=== PATIENT | male | born 1940 | race Caucasian/White ===

== ENCOUNTER → 2019-11-19 09:57 | Outpatient (BNVA) | payer MEDICARE, OTHER, SELFPAY | PROVIDERS: Family Provider Family Medicine; PCP Family Medicine; Visit Provider Nurse Practitioner Family | DX: N40.1 Benign prostatic hyperplasia with lower urinary tract symptoms (principal); R33.9 Retention of urine, unspecified | CPT/HCPCS: 81001 ==

== ENCOUNTER → 2020-11-18 09:48 | Outpatient (BNVA) | payer MEDICARE, OTHER, SELFPAY | PROVIDERS: Family Provider Family Medicine; PCP Family Medicine; Visit Provider Urology | DX: N40.1 Benign prostatic hyperplasia with lower urinary tract symptoms (principal); N13.8 Other obstructive and reflux uropathy; Z87.448 Personal history of other diseases of urinary system | CPT/HCPCS: 81003 ==

== ENCOUNTER → 2021-09-24 14:02 | Outpatient (BNVA) | payer MEDICARE, OTHER, SELFPAY | PROVIDERS: Family Provider Family Medicine; PCP Family Medicine; Visit Provider Internal Medicine Cardiovascular Disease | DX: I25.10 Atherosclerotic heart disease of native coronary artery without angina pectoris (principal); I10 Essential (primary) hypertension; E78.5 Hyperlipidemia, unspecified; Z87.891 Personal history of nicotine dependence | CPT/HCPCS: 99213; 99214 ==

== ENCOUNTER → 2021-11-19 10:41 | Outpatient (BNVA) | payer MEDICARE, OTHER, SELFPAY | PROVIDERS: Family Provider Family Medicine; PCP Family Medicine; Visit Provider Urology | DX: N40.1 Benign prostatic hyperplasia with lower urinary tract symptoms (principal); N13.8 Other obstructive and reflux uropathy; Z87.448 Personal history of other diseases of urinary system; N50.819 Testicular pain, unspecified | CPT/HCPCS: 51798; 81003; 99213 ==

== ENCOUNTER → 2021-12-10 12:52 | Outpatient (BNVA) | payer MEDICARE, OTHER, SELFPAY | PROVIDERS: Family Provider Family Medicine; PCP Family Medicine; Visit Provider Urology | DX: N40.1 Benign prostatic hyperplasia with lower urinary tract symptoms (principal); N45.1 Epididymitis; N13.8 Other obstructive and reflux uropathy | CPT/HCPCS: 81003; 87086; 99213 ==

== ENCOUNTER → 2022-01-01 09:23 | Outpatient (BNVA) | payer MEDICARE, OTHER, SELFPAY | PROVIDERS: Family Provider Family Medicine; PCP Family Medicine; Visit Provider Urology | DX: N40.1 Benign prostatic hyperplasia with lower urinary tract symptoms (principal); N13.8 Other obstructive and reflux uropathy; N45.1 Epididymitis | CPT/HCPCS: 81003; 99213 ==

== ENCOUNTER → 2022-01-11 12:34 | Outpatient (BNVA) | payer MEDICARE, OTHER, SELFPAY | PROVIDERS: Family Provider Family Medicine; PCP Family Medicine; Visit Provider Urology | DX: N40.1 Benign prostatic hyperplasia with lower urinary tract symptoms (principal); N13.8 Other obstructive and reflux uropathy; N45.1 Epididymitis | CPT/HCPCS: 81003; 99213 ==

== ENCOUNTER → 2022-02-18 08:23 | Outpatient (BNVA) | payer MEDICARE, OTHER, SELFPAY | PROVIDERS: Family Provider Family Medicine; PCP Family Medicine; Visit Provider Family Medicine | DX: I10 Essential (primary) hypertension (principal); E78.5 Hyperlipidemia, unspecified; Z79.899 Other long term (current) drug therapy | CPT/HCPCS: 80053; 80061; 83036; 85025 ==

== ENCOUNTER 2022-03-11 08:52 | Emergency (ER) | payer MEDICARE, OTHER, SELFPAY ==
[2022-03-11 09:10] VITALS: BP 174/83; PULSE 69; RESP 28; TEMP 36.2; O2SAT 100
--- NOTE | 2022-03-11 09:16 | XRR_ITS ---
PROCEDURE INFORMATION: Exam: XR Chest Exam date and time: 03/11/2022 9:20 AM Age: 81 years old Clinical indication: Cough, dyspnea and shortness of breath. Feels as if his heart is racing. Patient states that he does not feel right. Face is really red. of the patient states that he has never had an episode like this before. Dyspnea/cough TECHNIQUE: Imaging protocol: Radiologic exam of the chest. Views: 1 view. COMPARISON: CT chest w con* [id number] 05/08/2019 1:57 PM FINDINGS: Lungs: No pulmonary consolidation. Pleural spaces: No pleural effusion. No pneumothorax. Heart/Mediastinum: The cardiac silhouette is unchanged. No gross evidence of pneumomediastinum. Diaphragm: Persistent elevation of the right hemidiaphragm. Bones/joints: Severe degenerative changes at the right glenohumeral joint. Moderate to severe degenerative changes at the left glenohumeral joint. No gross fracture. XR/XR chest 1V portable [id number] IMPRESSION: 1. No acute cardiopulmonary abnormality identified. 2. Persistent elevation of the right hemidiaphragm. 3. Severe degenerative changes at the right glenohumeral joint. Moderate to severe degenerative changes at the left glenohumeral joint.
--- NOTE | 2022-03-11 09:16 | ECG_ITS ---
[facility] Test Date: 2022-03-11 Pat Name: Jesus Overton Department: Room: Gender: Male Sub Prior: : 1940 Requested By: Trent Monet Order Number: [id number] Gregg MD: Robe Addison M.D. Measurements Intervals [place] Rate: 68 P: 64 TN: 158 QRS: 41 QRSD: 101 T: -22 QT: 409 QTc: 438 Interpretive Statements SINUS RHYTHM WITH SINUS ARRHYTHMIA POSSIBLE RIGHT VENTRICULAR CONDUCTION DELAY [RSR (QR) IN V1/V2] NONSPECIFIC ST & T-WAVE ABNORMALITY Compared to ECG 06/23/2016 23:04:33 T-wave abnormality now present Sinus bradycardia no longer present Myocardial infarct finding no longer present Electronically Signed On 03-11-2022 11:06:59 CDT by Robe Addison M.D. [email or web address]/store/Ov/[id number]/[id number]
--- NOTE | 2022-03-11 09:29 | PC.NURSE ---
PT PLACED ON CONTINUOUS NIBP, SPO2, AND CM
--- NOTE | 2022-03-11 09:36 | ED_ITS ---
HPI - SOB/Dyspnea General: Chief Complaint: Shortness of Breath/Dyspnea Stated Complaint: SOB Time Seen by Provider: 03/11/22 08:57 Source: patient Mode of arrival: ambulatory History of Present Illness: HPI Narrative: 81-year-old male presents emergency room complaining of shortness of breath. He is not really having any chest pain or discomfort that he tells the nurse about. when I seen the patient though his states that he has been complaining of left chest pain he has no radiation of any discomfort into his neck or arms. In 2016 patient had a coronary artery stent placed by Dr. Beltran at this facility has been taking Plavix since then. On arrival he appears to be hyperventilating with respiratory rate initially in the upper 20s and 30s when I came in and seen the patient he was actually approaching 50 breaths/min and was obviously hyperventilating. No recent fever sweats chills or productive cough. MD elicited complaint: shortness of breath Onset (ago): hour(s) Timing: constant Severity: moderate Exacerbating factors: nothing Relieving factors: nothing Associated symptoms: Reports chest pain and sense of impending doom; Deny abdominal pain, chest congestion, cough, diaphoresis, dizziness, extremity pain, fever(s), hemoptysis, lightheadedness, myalgias, nausea, orthopnea, palpitations, paresthesias, polydipsia, polyuria, rash, syncope or vomiting Treatment prior to arrival: none Review of Systems Const: Denies: fever(s), chills, fatigue, malaise or diaphoresis ENMT: Denies: throat pain, ear or mastoid pain, nasal discharge or nasal conge stion Card: Reports: chest pain; Denies: palpitations, irregular heart rhythm, edema, lightheadedness, syncope or orthopnea Resp: Reports: dyspnea; Denies: productive cough, non-productive cough, hemoptysis or chest congestion GI: Denies: abdominal pain, nausea or vomiting : Denies: flank pain, dysuria, urinary frequency or urinary urgency Musc: Denies: neck pain, back pain or extremity pain Skin/Breast: Denies: rash or pruritus Neuro: Denies: dizziness Endo: Denies: polyuria or polydipsia PFS ED PFSH: Medical History 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 Dyslipidemia (high LDL; low HDL) Elevated PSA Hypertension Surgical History H/O heart artery stent H/O neck surgery Status post transurethral resection of prostate Family History Father , at 96 Heart disease Bleeding disorder Hypertension Mother , at age 94 Stroke Social History Smoking and tobacco status: former smoker Alcohol intake: never Marital status: Current occupational status: retired History of recent travel: No Physical Exam Const: COMMON NORMALS: no acute distress GENERAL APPEARANCE: cooperative and comfortable ORIENTATION/CONSCIOUSNESS: Yes awake, Yes oriented to person, Yes oriented to place and Yes oriented to time HENMT: COMMON NORMALS: normocephalic, atraumatic, hearing grossly normal bilaterally, external ears normal, EAC's normal, TM's normal bilaterally, Normal nasal mucous membranes and turbinates present, moist oral mucous membranes and oropharynx normal HEAD & SCALP: normocephalic and atraumatic NOSE: Normal nasal mucous membranes and turbinates present EXTERNAL EAR: Yes external ears normal EXTERNAL AUDITORY CANAL: EAC's normal TYMPANIC MEMBRANE: TM's normal bilaterally Eye: COMMON NORMALS: Equal, round and reactive pupils present, EOMs intact bilaterally, conjunctivae normal and no scleral icterus CONJUNCTIVA: Yes conjunctivae normal PUPIL: Yes Equal, round and reactive pupils present Neck/C-Spine: COMMON NORMALS: full ROM, no lymphadenopathy, supple and no JVD Lymph: LYMPHATIC: no lymphadenopathy noted and no lymphedema noted Resp: COMMON NORMALS: No retractions, No use of accessory muscles and clear to auscultation bilaterally EFFORT & INSPECTION: Yes tachypneic AUSCULTATION: clear to auscultation bilaterally Cardio: COMMON NORMALS: no JVD, regular rate, regular rhythm and No murmurs present (Cardio) RATE: regular rate RHYTHM: regular rhythm GI: COMMON NORMALS: Soft to palpation and No hepatosplenomegaly present AUSCULTATION: Yes normoactive bowel sounds PALPATION: Yes Soft to palpation, No Tenderness to palpation present (GI), No Guarding due to palpation present (GI) and Yes No hepatosplenomegaly present Extremity: COMMON NORMALS: normal to inspection, capillary refill normal, no clubbing, cyanosis or edema, no calf tenderness and no pedal edema Neuro: SENSORIUM/ORIENTATION: Yes oriented to person, Yes oriented to place and Yes oriented to time Skin: COMMON NORMALS: no rashes or lesions noted GENERAL SKIN EXAM: no rashes or lesions noted Course Vital Signs: Vital signs: Vital Signs Temperature 97.2 F L 03/11/22 09:10 Pulse Rate 83 03/11/22 11:40 Respiratory Rate 20 H 03/11/22 10:40 Blood Pressure 162/78 03/11/22 11:40 Pulse Oximetry 96 03/11/22 11:40 Oxygen Delivery Me thod 03/11/22 10:40 Oxygen Flow Rate 2 03/11/22 10:40 MDM - SOB/Dyspnea Medical Decision Making Patient having significant anxiety attack with blood gases verified hyperventilation. Eventually were able to get him to slow down with use of benzodiazepines. He became quite sedate and actually for a brief time because of sleep apnea required some oxygen support. That improved and he is able to ambulate his hyperventilation is ceased we will discharge patient home have him follow-up with his primary care and/or cardiology. states he has an appointment to establish with cardiology this week. Medical Records I reviewed the patient's medical records. Lab Data I reviewed the patient's lab results. : 03/11/22 09:10 03/11/22 09:10 Labs/Radiology: Radiology Impressions Chest X-Ray 03/11/22 09:16 IMPRESSION: 1. No acute cardiopulmonary abnormality identified. 2. Persistent elevation of the right hemidiaphragm. 3. Severe degenerative changes at the right glenohumeral joint. Moderate to severe degenerative changes at the left glenohumeral joint. Laboratory Results WBC 13.2 10^3/uL (4.0-10.0) H 03/11/22 09:10 RBC 5.44 10^6/uL (4.1-5.3) H 03/11/22 09:10 Hgb 16.5 g/dL (11.7-16.6) 03/11/22 09:10 Hct 47.9 % (42.0-52.0) 03/11/22 09:10 MCV 88.1 fl (80-94) 03/11/22 09:10 MCH 30.3 pg (28.0-34.0) 03/11/22 09:10 MCHC 34.4 g/dL (30.0-36.0) 03/11/22 09:10 RDW 13.2 % (12.1-15.1) 03/11/22 09:10 Plt Count 366 10^3/cmm (130-400) 03/11/22 09:10 MPV 9.4 fL (7.4-10.4) 03/11/22 09:10 Neut % (Auto) 55.1 % 03/11/22 09:10 Lymph % (Auto) 30.9 % 03/11/22 09:10 Rains % (Auto) 10.4 % 03/11/22 09:10 Eos % (Auto) 1.7 % 03/11/22 09:10 Baso % (Auto) 0.8 % 03/11/22 09:10 Neut # (Auto) 7.26 10^3/uL (1.8-7.7) 03/11/22 09:10 Lymph # (Auto) 4.1 10^3/uL (0.8-4.8) 03/11/22 09:10 Rains # (Auto) 1.4 10^3/uL (0.2-0.9) H 03/11/22 09:10 Eos # (Auto) 0.2 10^3/uL (0.0-0.8) 03/11/22 09:10 Baso # (Auto) 0.1 10^3/uL (0.0-0.1) 03/11/22 09:10 Nucleated RBC % (auto) 0 % 03/11/22 09:10 Nucleated RBCs # 0.0 /100WBC 03/11/22 09:10 Specimen Type Arterial 03/11/22 09:27 Sample Site Radial, left 03/11/22 09:27 ABG pH 7.70 (7.35-7.45) H* 03/11/22 09:27 ABG pCO2 13.2 mmHg (35-45) L* 03/11/22 09:27 ABG pO2 129.0 mmHg (80.0-100.0) H 03/11/22 09:27 ABG HCO3 16.2 mmol/L (22-26) L 03/11/22 09:27 ABG O2 Saturation 98.5 03/11/22 09:27 ABG Base Excess 0.8 mmol/L (-2.0-2.0) 03/11/22 09:27 Irineo Test Pos 03/11/22 09:27 A-a O2 Gradient 0.1 mmHg (5-10) L 03/11/22 09:27 Hematocrit 53.7 % (42-52) H 03/11/22 09:27 Hgb O2 Saturation 97.9 % (95-100) 03/11/22 09:27 Carboxyhemoglobin 0.4 %THgb (0.4-20.1) 03/11/22 09:27 Methemoglobin 0.3 % (0.4-1.5) L 03/11/22 09:27 Total Hemoglobin 17.5 g/dL (14-18) 03/11/22 09:27 Sodium 142.0 mmol/L (131-143) 03/11/22 09:27 Potassium 3.4 mmol/L (3.5-5.0) L 03/11/22 09:27 Glucose 103.0 mg/dL (70-115) 03/11/22 09:27 Ionized Calcium 1.1 mmol/L (1.1-1.4) 03/11/22 09:27 O2 Delivery Device Room air 03/11/22 09:27 Sampler Pickup ID Cak 03/11/22 09:27 Sodium 140 mmol/L (136-145) 03/11/22 09:10 Potassium 3.3 mmol/L (3.5-5.1) L 03/11/22 09:10 Chloride 103 mmol/L (98-107) 03/11/22 09:10 Carbon Dioxide 21 mmol/L (22-29) L 03/11/22 09:10 Anion Gap 19.3 (5-19) H 03/11/22 09:10 BUN 21 mg/dL (8-23) 03/11/22 09:10 Creatinine 1.1 mg/dL (0.7-1.2) 03/11/22 09:10 GFR Calculation Not Reportable 03/11/22 09:10 Glucose 89 mg/dL (65-115) 03/11/22 09:10 Calculated Osmolality 292 mOsm/kg (285-295) 03/11/22 09:10 Calcium 9.3 mg/dL (8.5-10.5) 03/11/22 09:10 Total Bilirubin 0.9 mg/dL (0.15-1.2) 03/11/22 09:10 AST 16 U/L (0-40) 03/11/22 09:10 ALT 23 U/L (0-41) 03/11/22 09:10 Alkaline Phosphatase 115 U/L (40-130) 03/11/22 09:10 Troponin T Baseline 10 ng/L (0-15) 03/11/22 09:10 Troponin T 120 Minute 10.85 ng/L (0-15) 03/11/22 10:41 Delta Troponin T 0.85 ABS# (0-10) 03/11/22 10:41 Total Protein 7.3 g/dL (6.6-8.7) 03/11/22 09:10 Albumin 4.1 g/dL (3.5-5.2) 03/11/22 09:10 Globulin 3.2 g/dL (1.3-4.6) 03/11/22 09:10 Discharge Plan Discharge Patient Disposition: Home Clinical Impression: Acute hyperventilation syndrome Condition: Stable Prescriptions: New Ativan 2 mg tablet 2 mg PO Q8H PRN (Reason: anxiety) Qty: 10 0RF No Action simvastatin 40 mg tablet 40 mg PO DAILY pantoprazole 40 mg tablet,delayed release (DR/EC) 40 mg PO DAILY clopidogrel 75 mg tablet 75 mg PO DAILY Qty: 90 2RF lisinopril 40 mg tablet 40 mg PO DAILY 30 Days Qty: 30 11RF finasteride 5 mg tablet 5 mg PO DAILY Discharge Orders: Discharge ED (Routine); Ordered 03/11/22 Ordered By: Trent Granados Referrals: Gadiel Chávez, [Primary Care Provider] - Discharge Diet: Usual diet Discharge Activity: Increase activity as tolerated Patient Instructions: Opioid Safety, Pain Management Activity Restrictions/Additional Instructions: Follow-up with your primary care doctor as needed. Coding Level of Care Code ED Vehicle Care Specialist for Chg Fwd Exam Comprehensive
[2022-03-11 09:38] LABS: Alveolar-Arterial Oxygen Gradi 0.1 mmHg (5-10); Arterial Blood Gas Hematocrit 53.7 % (42-52); Base Excess ABG 0.8 mmol/L (-2.0-2.0); Blood Gas Allen Test Pos; Blood Gas Operator Identificat CAK; Blood Gas Sample Site Radial, left; Blood Gas Sample Type Arterial; Carboxyhemoglobin 0.4 %THgb (0.4-20.1); HCO3 ABG 16.2 mmol/L (22-26); HGB O2 Sat 97.9 % (95-100); Ionized Calcium Level - ABG 1.1 mmol/L (1.1-1.4); Methemoglobin 0.3 % (0.4-1.5); Oxygen Device ROOM AIR; Oxygen Saturation ABG 98.5; Potassium Level - ABG 3.4 mmol/L (3.5-5.0); Total Hemoglobin 17.5 g/dL (14-18)
[2022-03-11 09:39] LABS: ABG PCO2 13.2 mmHg (35-45)
[2022-03-11 09:40] VITALS: BP 175/91; PULSE 84; RESP 30; O2SAT 98
[2022-03-11 09:41] LABS: Basophils # 0.1 10^3/uL (0.0-0.1); Basophils % 0.8 %; Eosinophils # 0.2 10^3/uL (0.0-0.8); Eosinophils % 1.7 %; Hematocrit 47.9 % (42.0-52.0); Hemoglobin 16.5 g/dL (11.7-16.6); Lymphocytes # 4.1 10^3/uL (0.8-4.8); Lymphocytes % 30.9 %; Mean Corpuscular HGB Conc 34.4 g/dL (30.0-36.0); Mean Corpuscular Hemoglobin 30.3 pg (28.0-34.0); Mean Corpuscular Volume 88.1 fl (80-94); Mean Platelet Volume 9.4 fL (7.4-10.4); Monocytes # 1.4 10^3/uL (0.2-0.9); Monocytes % 10.4 %; Neutrophils # 7.26 10^3/uL (1.8-7.7); Neutrophils % 55.1 %; Nucleated Red Blood Cells % 0 %; Platelet Count 366 10^3/cmm (130-400); Red Blood Count 5.44 10^6/uL (4.1-5.3); Red Cell Distribution Width 13.2 % (12.1-15.1); White Blood Count 13.2 10^3/uL (4.0-10.0)
[2022-03-11] MEDS: LORazepam 2 mg Tablet PO (09:51)
[2022-03-11 10:04] LABS: Alanine Aminotransferase 23 U/L (0-41); Albumin Level 4.1 g/dL (3.5-5.2); Alkaline Phosphatase 115 U/L (40-130); Anion Gap 19.3 (5-19); Aspartate Amino Transferase 16 U/L (0-40); Blood Urea Nitrogen 21 mg/dL (8-23); Calcium 9.3 mg/dL (8.5-10.5); Carbon Dioxide 21 mmol/L (22-29); Chloride 103 mmol/L (98-107); Globulin 3.2 g/dL (1.3-4.6); Glucose 89 mg/dL (65-115); Osmolality Calculated 292 mOsm/kg (285-295); Potassium 3.3 mmol/L (3.5-5.1); Sodium 140 mmol/L (136-145); Total Bilirubin 0.9 mg/dL (0.15-1.2); Total Protein 7.3 g/dL (6.6-8.7)
[2022-03-11 10:05] LABS: Troponin(5th) Baseline 10 ng/L (0-15)
[2022-03-11] MEDS: midazolam 1 mg/mL INJ 2 mL IVP (10:33)
[2022-03-11 10:40] VITALS: BP 171/82; PULSE 63; RESP 20; O2SAT 97
[2022-03-11 11:12] LABS: Troponin 5 2HR 10.85 ng/L (0-15)
[2022-03-11 11:39] LABS: Troponin 5 2HR Delta 0.85 ABS# (0-10)
[2022-03-11 11:40] VITALS: BP 162/78; PULSE 83; O2SAT 96
== END 2022-03-11 11:42 | disposition home or self-care (01) ==
PROVIDERS: Emergency Provider Family Medicine; PCP Family Medicine
DX: F45.8 Other somatoform disorders (principal); Z79.02 Long term (current) use of antithrombotics/antiplatelets; I25.10 Atherosclerotic heart disease of native coronary artery without angina pectoris; I10 Essential (primary) hypertension; E78.5 Hyperlipidemia, unspecified; Z87.891 Personal history of nicotine dependence
CPT/HCPCS: 36415; 36600; 71045; 80051; 80053; 82330; 82805; 84484; 85025; 93005; 96374; 99285; J2250

== ENCOUNTER → 2022-03-12 10:44 | Outpatient (BNVA) | payer MEDICARE, OTHER, SELFPAY | PROVIDERS: PCP Family Medicine; Visit Provider Internal Medicine Cardiovascular Disease | DX: I10 Essential (primary) hypertension (principal); Z87.891 Personal history of nicotine dependence | CPT/HCPCS: 99213; 99214 ==

== ENCOUNTER → 2022-03-16 07:36 | Outpatient (BNVA) | payer MEDICARE, OTHER, SELFPAY | PROVIDERS: PCP Family Medicine; Visit Provider Urology | DX: N40.1 Benign prostatic hyperplasia with lower urinary tract symptoms (principal); N13.8 Other obstructive and reflux uropathy; N45.1 Epididymitis | CPT/HCPCS: 99213 ==

== ENCOUNTER → 2022-06-28 14:33 | Outpatient (BNVA) | payer MEDICARE, SELFPAY | PROVIDERS: PCP Family Medicine; Visit Provider Urology | DX: N40.1 Benign prostatic hyperplasia with lower urinary tract symptoms (principal); Z87.448 Personal history of other diseases of urinary system; N13.8 Other obstructive and reflux uropathy; N50.812 Left testicular pain | CPT/HCPCS: 81003; 99214 ==

== ENCOUNTER 2022-07-05 05:49 | Day surgery (SDC) | payer MEDICARE, SELFPAY ==
--- NOTE | 2022-06-30 11:10 | ECG_ITS ---
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 Measurements Intervals [place] Rate: 65 P: 62 TN: 165 QRS: 50 QRSD: 102 T: 37 QT: 399 QTc: 416 Interpretive Statements SINUS RHYTHM INCOMPLETE RIGHT BUNDLE BRANCH BLOCK [90+ ms QRS DURATION, TERMINAL R IN V1/V2, 40+ ms S IN I/aVL/V4/V5/V6] INTERPRETATION BASED ON A DEFAULT AGE OF 40 YEARS Compared to ECG 03/11/2022 09:04:29 Incomplete right bundle-branch block now present Sinus arrhythmia no longer present T-wave abnormality no longer present Electronically Signed On 07-01-2022 0:16:05 MINING HELPER by Scout Potts M.D. [email or web address]/store/[id number] f
--- NOTE | 2022-06-30 11:58 | ANES.PREANE2 ---
Pre-Anesthetic Assessment Height/Weight: Height 1.73 m Weight 86.636 kg Operation Date: 07/05/22 07:20 Proposed Procedures p LEFT ORCHIECTOMY 82520,N50.819(Left) - Drew Kurtz MD Was Beta Santiago taken within 24 hours: N/A Was Clonidine taken within 24 hours: N/A Social No alcohol and No tobacco Exam alert, oriented x 3, clear to auscultation bilaterally and regular rate & rhythm Airway Submandibular: within normal limits Cervical ROM: within normal limits Mallampati: Class II Dentition: false Comments: Comments: Full upper plate lower pertial History/ROS No significant history except as noted and No significant complaints Pulmonary None reported CV/HEM Coronary Artery Disease and Hypertension Stents x2 2016 None reported Hepatic None reported GI None reported Metabolic None reported Musc/skel None reported Neuropsych None reported Anesthetic Plan ASA status: 2 Anesthesia: Anesthesia Evaluation and General Risk of > 500 ml blood loss (7ml/kg in children): No Medications/Allergies Home Medications Medication Instructions Recorded Confirmed Last Taken Type pantoprazole 40 mg tablet,delayed 40 mg PO DAILY 11/19/19 06/30/22 06/30/22 History release clopidogrel 75 mg tablet 75 mg PO DAILY #90 tabs 12/25/21 06/30/22 06/28/22 Rx lisinopril 40 mg tablet 40 mg PO DAILY 30 days #30 tabs 01/15/22 06/30/22 06/30/22 Rx finasteride 5 mg tablet 5 mg PO DAILY 03/11/22 06/30/22 06/30/22 History simvastatin 40 mg tablet 40 mg PO DAILY for cholesterol #90 06/17/22 06/30/22 06/30/22 Rx tabs Allergies Allergy/AdvReac Type Severity Reaction Status Date / Time Sulfa (Sulfonamide Allergy Intermediate headache Verified 06/30/22 10:53 Antibiotics) metoprolol Allergy Intermediate weak and Uncoded 06/28/22 14:41 sluggish [facility] Anesthesia Medical History Atherosclerotic heart disease of [place] coronary artery without angina pectoris Benign essential HTN BPH w urinary obs/LUTS Dyslipidemia (high LDL; low HDL) Elevated PSA Hypertension Surgical History H/O heart artery stent H/O neck surgery Status post transurethral resection of prostate Family History Father , at 96 Heart disease Bleeding disorder Hypertension Mother , at age 94 Stroke Social History Smoking and tobacco status: former smoker Alcohol intake: never Marital status: Current occupational status: retired History of recent travel: No Data Anesthesia Cardiac Studies: No Data to Display
--- NOTE | 2022-07-05 05:58 | ECG_ITS ---
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 Measurements Intervals [place] Rate: 57 P: 37 NC: 177 QRS: 38 QRSD: 106 T: 32 QT: 386 QTc: 378 Interpretive Statements SINUS BRADYCARDIA INCOMPLETE RIGHT BUNDLE BRANCH BLOCK [90+ ms QRS DURATION, TERMINAL R IN V1/V2, 40+ ms S IN I/aVL/V4/V5/V6] NONSPECIFIC T-WAVE ABNORMALITY Compared to ECG 06/30/2022 11:10:34 T-wave abnormality now present Sinus rhythm no longer present Electronically Signed On 07-05-2022 11:20:51 HEADLIGHT ASSEMBLER by Robe Addison M.D. [id number]
[2022-07-05 06:03] VITALS: BP 141/76; PULSE 55; RESP 18; TEMP 36.8; O2SAT 97
[2022-07-05] MEDS: sodium chloride 0.9% 1,000 ML 30 ML IV (06:17)
[2022-07-05 06:19] LABS: Basophils # 0.1 10^3/uL (0.0-0.1); Basophils % 1.3 %; Eosinophils # 0.3 10^3/uL (0.0-0.8); Eosinophils % 3.2 %; Hematocrit 48.4 % (42.0-52.0); Hemoglobin 16.1 g/dL (11.7-16.6); Lymphocytes # 3.4 10^3/uL (0.8-4.8); Mean Corpuscular HGB Conc 33.3 g/dL (30.0-36.0); Mean Corpuscular Hemoglobin 29.6 pg (28.0-34.0); Mean Platelet Volume 9.3 fL (7.4-10.4); Monocytes # 0.8 10^3/uL (0.2-0.9); Neutrophils # 4.45 10^3/uL (1.8-7.7); Neutrophils % 49.1 %; Nucleated Red Blood Cells % 0 %; Platelet Count 286 10^3/cmm (130-400); Red Blood Count 5.44 10^6/uL (4.1-5.3); Red Cell Distribution Width 12.7 % (12.1-15.1); White Blood Count 9.1 10^3/uL (4.0-10.0)
[2022-07-05 06:40] LABS: Blood Urea Nitrogen 15 mg/dL (8-23); Carbon Dioxide 22 mmol/L (22-29); Chloride 105 mmol/L (98-107); Glucose 81 mg/dL (65-115); Osmolality Calculated 288 mOsm/kg (285-295); Sodium 139 mmol/L (136-145)
--- NOTE | 2022-07-05 06:46 | ANES.PREANE2 ---
Pre-Anesthetic Assessment Height/Weight: Height 1.73 m Weight 86.636 kg Temp Pulse Resp BP Pulse Ox O2 Del Method 98.2 F 55 L 18 141/76 97 07/05/22 06:03 07/05/22 06:03 07/05/22 06:03 07/05/22 06:03 07/05/22 06:03 07/05/22 06:03 Preop Diagnosis: Left testalgia, chronic Operation Date: 07/05/22 07:00 Proposed Procedures p LEFT ORCHIECTOMY 78093,N50.819(Left) - Drew Kurtz MD Familial anesthetic complications: no issues Last intake: Intake Last Liquid Date 07/04/22 Last Liquid Time 17:30 Last Solid Date 07/04/22 Last Solid Time 17:30 Social No alcohol and No tobacco Airway Submandibular: within normal limits Cervical ROM: within normal limits Mallampati: Class III Dentition: false Pulmonary None reported CV/HEM Hypertension 2017 heart stents None reported Hepatic None reported GI Gastroesophageal Reflux Disease (no symptoms today) and Hiatal Hernia Metabolic Hyperlipidemia [facility] None reported Neuropsych None reported Anesthetic Plan ASA status: 3 Anesthesia: General Medications/Allergies Home Medications Medication Instructions Recorded Confirmed Last Taken Type pantoprazole 40 mg tablet,delayed 40 mg PO DAILY 11/19/19 06/30/22 07/04/22 History release clopidogrel 75 mg tablet 75 mg PO DAILY #90 tabs 12/25/21 06/30/22 06/28/22 Rx lisinopril 40 mg tablet 40 mg PO DAILY 30 days #30 tabs 01/15/22 06/30/22 07/04/22 Rx finasteride 5 mg tablet 5 mg PO DAILY 03/11/22 06/30/22 07/04/22 History simvastatin 40 mg tablet 40 mg PO DAILY for cholesterol #90 06/17/22 06/30/22 07/04/22 Rx tabs hydrocodone 5 mg-acetaminophen 325 1 tab PO Q8H PRN pain #8 tabs 07/05/22 Unknown Rx mg tablet Allergies Allergy/AdvReac Type Severity Reaction Status Date / Time Sulfa (Sulfonamide Allergy Intermediate headache Verified 07/05/22 06:02 Antibiotics) metoprolol Allergy Intermediate weak and Uncoded 07/05/22 06:02 sluggish Current Medications Generic Name Dose Route Start Last Admin Trade Name Freq PRN Reason Stop Dose Admin Sodium Chloride 1,000 mls @ 30 mls/hr 07/05/22 06:00 07/05/22 06:17 Sodium Chloride 0.9% IV 07/06/22 05:59 30 mls/hr .Q24H HARISH Administration PFSH Anesthesia Medical History Atherosclerotic heart disease of [place] coronary artery without angina pectoris Benign essential HTN BPH w urinary obs/LUTS Dyslipidemia (high LDL; low HDL) Elevated PSA Hypertension Surgical History H/O heart artery stent H/O neck surgery Status post transurethral resection of prostate Family History Father , at 96 Heart disease Bleeding disorder Hypertension Mother , at age 94 Stroke Social History Smoking and tobacco status: former smoker Alcohol intake: never Marital status: Current occupational status: retired History of recent travel: No Data Anesthesia 07/05/22 Unknown 07/05/22 Unknown Short CBC 07/05/22 Range/Units Unknown WBC 9.1 (4.0-10.0) 10^3/uL Hgb 16.1 (11.7-16.6) g/dL Hct 48.4 (42.0-52.0) % MCV 89.0 (80-94) fl Plt Count 286 (130-400) 10^3/cmm Neut % (Auto) 49.1 % Neut # (Auto) 4.45 (1.8-7.7) 10^3/uL BMP 07/05/22 Unknown Sodium 139 Chloride 105 Carbon Dioxide 22 BUN 15 Creatinine 1.0 Glucose 81 Calcium 9.0 Cardiac Studies: No Data to Display
--- NOTE | 2022-07-05 07:06 | P.HPUD_ITS ---
Surgery/Procedure H&P Update DATE OF PROCEDURE: July 05, 2022 DATE H&P PERFORMED: 06/28/22 H&P UPDATE INFORMATION: I have reviewed H&P completed within last 30 days, I have examined patient prior to procedure and H&P is in [facility] EMR on date indicated CHANGES TO PREVIOUS DOCUMENTATION: No changes to H&P status. Confirmed left side with markings and patient/ verification PREOP DIAGNOSIS: Left testalgia, chronic PLANNED PROCEDURE: Operation Date: 07/05/22 07:00 Proposed Procedures p LEFT ORCHIECTOMY 37510,N50.819(Left) - Drew Kurtz MD
[2022-07-05 07:11] LABS: Anion Gap 16.2 (5-19); Potassium 4.2 mmol/L (3.5-5.1)
[2022-07-05] MEDS: ceFAZolin 2,000 MG in sodium chloride 0.9% (plus) 50 ML 100 MG IV (07:12)
--- NOTE | 2022-07-05 08:09 | P.OP_ITS ---
Operative Report Date of procedure: July 05, 2022 Pre-op diagnosis: Left testalgia, chronic Post-op diagnosis: Left testalgia, chronic Procedure done: 1. LEFT scrotal orchiectomy Implants: None Specimens removed/disposition: Left testicle and partial spermatic cord Pathology: Left testicle and partial spermatic cord Surgeon: Jerardo Estimated blood loss: Minimal Urine output: Not measured Complications: None Findings: Anesthesia: General Condition: Stable Disposition: PACU Intraoperative findings: * Grossly normal appearing testicle/spermatic cord Brief History: Mr. Cook is a very pleasant 81-year-old white male who I am known for quite some time for other urologic issues. Over the last several years he has had increasing problems with chronic left testalgia. Has tried antibiotic therapy with no durable benefit and no direct correlation over time testicle has been normal to examination with no evidence of torsion, hernia, infection, mass etc. 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 We did review potential for persist phantom pain . Admitted to outpatient surgery for left orchiectomy through scrotal approach. Procedure: After routine preoperative evaluation examination and obtaining of informed consent he was taken to the operating suite on 07/05/2022 where general anesthesia was administered without difficulty after appropriate timeout was per formed, SCDs confirmed to be functioning, preoperative antibiotics administered, beta-jones protocol confirmed. Prepped and draped in usual sterile fashion in supine position paying careful attention to avoiding pressure points. Laterality confirmed via preoperative markings. Midline median raphae scrotal incision was made over the left testicle and incision was taken down through skin and subcutaneous tissue. The tunica vaginalis was dissected free from the scrotal contents and the cord was dissected free. It was doubly clamped and then divided into packets. Heavy silk sutures were utilized for double ligation of the cord stump. Hemostasis was confirmed. The wound was copiously irrigated. Wound closed in layers with 3-0 Vicryl for interrupted sutures for apposition of deep tissues to close the space as well as dartos layer with a running stitch. 4-0 Vicryl was utilized for subcuticular closure with Dermabond applied externally. Functional and cosmetic result was good. Sterile dressings applied. Scrotal support placed with fluffed dressings for light compression. He tolerated procedure well without complications and was awakened in the operating room and returned to PACU in stable condition. PLANS: 1. Anticipate discharge from outpatient surgery 2. Follow-up in about 6 weeks for postop check. Call sooner for any concerns or questions. 3. Findings reviewed with his postoperatively
[2022-07-05 08:15] VITALS: BP 156/81; PULSE 62; RESP 15; TEMP 36.1; O2SAT 100
[2022-07-05 08:20] VITALS: BP 154/74; PULSE 56; RESP 20; O2SAT 100
[2022-07-05 08:25] VITALS: BP 145/71; PULSE 60; RESP 14; O2SAT 100
[2022-07-05 08:30] VITALS: BP 139/79; PULSE 57; RESP 16; O2SAT 97
[2022-07-05 08:35] VITALS: BP 140/76; PULSE 55; RESP 18; TEMP 36.2; O2SAT 96
--- NOTE | 2022-07-05 15:19 | ANE.PACU2 ---
Inpatient post-anesthesia follow up: Airway intact: Yes Vital signs: Temperature 97.1 F Pulse Rate 55 Respiratory Rate 18 Blood Pressure 140/76 Pulse Oximetry 96 Oxygen Delivery Me thod Room Air Oxygen Flow Rate 3 Fraction of Inspir ed Oxygen Hydration adequate: Yes Nausea and vomiting: No Pain level: 3 Mental status: Baseline
== END 2022-07-05 09:25 | disposition home or self-care (01) ==
PROVIDERS: PCP Family Medicine; Visit Provider Urology
PROC: (CPT 54520; principal; 2022-07-05 07:00)
DX: N50.812 Left testicular pain (principal); I10 Essential (primary) hypertension; N40.1 Benign prostatic hyperplasia with lower urinary tract symptoms; N13.8 Other obstructive and reflux uropathy; E78.5 Hyperlipidemia, unspecified; Z87.891 Personal history of nicotine dependence; I25.10 Atherosclerotic heart disease of native coronary artery without angina pectoris; Z95.5 Presence of coronary angioplasty implant and graft
CPT/HCPCS: 54520; 80048; 85025; 88304; 93005; J0690; J2405; J2704; J2710; J3010; J3490; J7030

== ENCOUNTER → 2022-08-16 15:56 | Outpatient (BNVA) | payer MEDICARE, SELFPAY | PROVIDERS: PCP Family Medicine; Visit Provider Urology | DX: Z87.448 Personal history of other diseases of urinary system (principal); N40.1 Benign prostatic hyperplasia with lower urinary tract symptoms; N13.8 Other obstructive and reflux uropathy | CPT/HCPCS: 99024 ==

== ENCOUNTER → 2022-11-30 14:51 | Outpatient (BNVA) | payer MEDICARE, SELFPAY | PROVIDERS: PCP Family Medicine; Visit Provider Internal Medicine Cardiovascular Disease | DX: I10 Essential (primary) hypertension (principal); I25.10 Atherosclerotic heart disease of native coronary artery without angina pectoris; Z87.891 Personal history of nicotine dependence; E78.5 Hyperlipidemia, unspecified; N40.1 Benign prostatic hyperplasia with lower urinary tract symptoms | CPT/HCPCS: 99214 ==

== ENCOUNTER → 2023-12-23 09:18 | Outpatient (BNVA) | payer MEDICARE, SELFPAY | PROVIDERS: PCP Family Medicine; Visit Provider Internal Medicine Cardiovascular Disease | DX: I25.10 Atherosclerotic heart disease of native coronary artery without angina pectoris (principal); I10 Essential (primary) hypertension; E78.5 Hyperlipidemia, unspecified; Z95.5 Presence of coronary angioplasty implant and graft; Z87.891 Personal history of nicotine dependence | CPT/HCPCS: 99213 ==

== ENCOUNTER 2024-01-12 07:16 | Outpatient (CLI) | payer MEDICARE, OTHER, SELFPAY ==
--- NOTE | 2024-01-12 07:32 | NMCV_ITS ---
NM jyoti perf SPECT r/s* [id number] Jesus Overton Age: 83 Gender: M : 1940 Exam Date: 01/12/2024 08:04 Ordering Phys: Tariq Beltran MD ([email or web address]) Technologist: FEDERICA Ma Exam Location: [facility] Indications: CP STRESS TEST [facility] IMAGE PROTOCOL Rest/Stress 1 Lexiscan Day Radiopharmaceutical Dose (mCi) Administration Site Administered by Rest: Tc-99m 11.0 IV FEDERICA Ma Sestamibi Stress:Tc-99m 32.2 IV FEDERICA Ma Sestamibi Rest: 12-Jan-2024 60 Discovery 630 Stress: 12-Jan-2024 30 Discovery 630 0.4mg Lexiscan. Supine position only as patient was unable to lay prone. SPECT RESULTS Technical Quality: Excellent Raw Data Analysis: Normal Image Corrections: No attenuation or motion correction applied Summed Stress Score: 9 Summed Rest Score: 5 Summed Difference Score: 4 PERFUSION FINDINGS Moderate area of moderately decreased tracer uptake involving the basal and mid inferior, mid inferolateral and apical lateral regions. Significant reversibility was noted in these regions. The inferolateral and apical lateral regions. Small area of slightly decreased tracer uptake was noted in the mid anterior region with some reversibility. FUNCTIONAL RESULTS (calculated via Gated SPECT) Stress Image LV EF (%): 64 Stress EDV (mL):86 TID: 1.17 Stress ESV (mL):31 FUNCTIONAL FINDINGS: Segmental wall motion analysis revealing no gross wall motion abnormalities IMPRESSIONS 1. Myocardial perfusion imaging revealing moderate area of moderately decreased tracer uptake involving the inferior, inferolateral and apical lateral regions with some reversibility suggesting myocardial scarring in the distribution of the right coronary artery with a small area of ischemia in the distribution of the left circumflex artery. Small area of reversible defect in the mid anterolateral region, suggestive of ischemia in the distribution of the left anterior descending artery 2. Normal LV ejection fraction 64%. 3. LV wall motion analysis revealing no gross wall motion abnormalities. 4. Normal LV volume Slightly elevated transient ischemic dilatation ratio may suggest endocardial ischemia. Dr Scout Potts MD FAC (Electronically Signed) Final Date: 12 January 2024 13:26 S
--- NOTE | 2024-01-12 07:32 | ECG_ITS ---
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 Interpretive Statements NAME OF STUDY: LEXISCAN SESTAMIBI STRESS TEST INDICATION: [Chest Pain, ] Procedure: At the baseline, the blood pressure was 157/61 mmHg with a heart rate of 56bpm. The electrocardiogram showed sinus bradycardia, normal axis with normal ST and T's. The Lexiscan was infused over a period of 20 seconds. A total of 0.4 mg of Lexiscan was infused. The stress phase was continued for a total of 5 minutes. Heart rate was at the end of stress phase was 62 bpm and a blood pressure of 149/64 mmHg. The EKG at the peak infusion revealed normal sinus rhythm with no significant ST-T wave changes. Sestamibi was injected 20 seconds after the Lexiscan infusion. Blood pressure at the end of recovery phase was 142/56 mmHg with a heart rate of 65 bpm Conclusion: 1. Normal EKG response to Lexiscan infusion 2. No Lexiscan induced chest pain or cardiac arrhythmia. 3. Normal blood pressure and heart rate response. 4. Sestamibi/sestamibi perfusion scan pending; see separate report. Electronically Signed On 01-14-2024 9:40:30 CDT by Robe Addison M.D. [id number]
[2024-01-12 07:34] VITALS: BMI 28.5
[2024-01-12] MEDS: regadenoson 0.4 Mg/5 ml Syringe IVP (08:41)
[2024-01-12 09:20] VITALS: BP 142/56; PULSE 73
== END 2024-01-12 07:17 | disposition home or self-care (01) ==
PROVIDERS: PCP Family Medicine; Visit Provider Internal Medicine Cardiovascular Disease
DX: I25.10 Atherosclerotic heart disease of native coronary artery without angina pectoris (principal); R94.39 Abnormal result of other cardiovascular function study
CPT/HCPCS: 36415; 78452; 93017; 96374; A9500; J2785

== ENCOUNTER → 2024-02-27 14:54 | Outpatient (BNVA) | payer MEDICARE, OTHER, SELFPAY | PROVIDERS: PCP Family Medicine; Visit Provider Internal Medicine Cardiovascular Disease | DX: I25.10 Atherosclerotic heart disease of native coronary artery without angina pectoris (principal); I10 Essential (primary) hypertension; E78.5 Hyperlipidemia, unspecified; Z87.891 Personal history of nicotine dependence | CPT/HCPCS: 99214 ==

== ENCOUNTER → 2024-08-27 12:49 | Outpatient (BNVA) | payer MEDICARE, OTHER, SELFPAY | PROVIDERS: PCP Family Medicine; Visit Provider Internal Medicine Cardiovascular Disease | DX: I25.10 Atherosclerotic heart disease of native coronary artery without angina pectoris (principal); I10 Essential (primary) hypertension; E78.5 Hyperlipidemia, unspecified; Z79.01 Long term (current) use of anticoagulants; Z95.5 Presence of coronary angioplasty implant and graft; Z87.891 Personal history of nicotine dependence | CPT/HCPCS: 99214 ==

== ENCOUNTER → 2024-10-08 13:44 | Outpatient (BNVA) | payer MEDICARE, OTHER, SELFPAY | PROVIDERS: PCP Family Medicine; Visit Provider Nurse Practitioner Family | DX: L82.1 Other seborrheic keratosis (principal); D22.5 Melanocytic nevi of trunk; L57.8 Other skin changes due to chronic exposure to nonionizing radiation; Z08 Encounter for follow-up examination after completed treatment for malignant neoplasm; Z85.828 Personal history of other malignant neoplasm of skin; D48.5 Neoplasm of uncertain behavior of skin; L57.0 Actinic keratosis | CPT/HCPCS: 11102; 17000; 99203 ==

== ENCOUNTER 2024-11-09 14:32 | Emergency (ER) | payer MEDICARE, OTHER, SELFPAY ==
[2024-11-09 14:40] VITALS: BP 161/66; PULSE 53; RESP 16; TEMP 36.5; O2SAT 97
--- NOTE | 2024-11-09 16:41 | CTR_ITS ---
PROCEDURE INFORMATION: Exam: CT Head Without And With Contrast Exam date and time: 11/09/2024 5:34 PM Age: 84 years old Clinical indication: Visual disturbance; Additional info: Diplopia TECHNIQUE: Imaging protocol: Computed tomography of the head without and with contrast. Radiation optimization: All CT scans at this facility use at least one of these dose optimization techniques: automated exposure control; mA and/or kV adjustment per patient size (includes targeted exams where dose is matched to clinical indication); or iterative reconstruction. Contrast material: OMNIPAQUE 350; Contrast volume: 80 ml; Contrast route: INTRAVENOUS (IV); COMPARISON: MR iac's wo/w con* [id number] 04/26/2018 8:43 AM RADIATION DOSE METRICS: Total DLP (mGy-cm): 2281.38 FINDINGS: Brain: No intracranial hemorrhage. There is global parenchymal volume loss. Periventricular white matter hypoattenuation is nonspecific but most likely due to small vessel disease. No evidence of acute territorial infarct or cerebral edema. No mass effect or midline shift.There are no regions of abnormal enhancement. The visualized intracranial vasculature is unremarkable. Cerebral ventricles: Prominent ventricles likely secondary to volume loss. Paranasal sinuses: Visualized paranasal sinuses are clear. Mastoid air cells: The mastoid air cells are clear. Bones: The calvarium is intact. Soft tissues: Soft tissues are unremarkable as visualized. CT/CT head wo/w con [id number] IMPRESSION: No acute intracranial findings. No abnormal enhancement.
[2024-11-09 17:07] LABS: Basophils # 0.1 10^3/uL (0.0-0.1); Basophils % 1.4 %; Eosinophils # 0.2 10^3/uL (0.0-0.8); Eosinophils % 2.5 %; Hematocrit 47.9 % (37-53); Lymphocytes # 2.7 10^3/uL (0.8-4.8); Mean Corpuscular HGB Conc 34.2 g/dL (30-55); Mean Corpuscular Volume 87.7 fl (82-101); Mean Platelet Volume 9.5 fL (7.4-10.4); Monocytes # 0.6 10^3/uL (0.2-0.9); Monocytes % 8.5 %; Neutrophils # 3.61 10^3/uL (1.8-7.7); Neutrophils % 50.3 %; Nucleated Red Blood Cells % 0 %; Platelet Count 248 10^3/cmm (157-399); Red Blood Count 5.46 10^6/uL (3.85-5.65); Red Cell Distribution Width 13.4 % (12.1-15.1); White Blood Count 7.18 10^3/uL (3.29-11.43)
[2024-11-09 17:25] LABS: Blood Urea Nitrogen 16 mg/dL (8-23); Calcium 9.1 mg/dL (8.5-10.5); Carbon Dioxide 25 mmol/L (22-29); Chloride 107 mmol/L (98-107); Creatinine Clr Calc Pharmacy 53.6937; Glucose 97 mg/dL (65-115); Osmolality Calculated 301 mOsm/kg (285-295); Sodium 145 mmol/L (136-145)
[2024-11-09] MEDS: iohexol 350 mg/mL 500 mL Btl (per mL) IV (17:36)
[2024-11-09 18:00] VITALS: BP 150/67; PULSE 54; O2SAT 94
[2024-11-09 19:23] VITALS: BP 155/70; PULSE 53; O2SAT 97
--- NOTE | 2024-11-09 19:46 | ED_ITS ---
HPI - Eye Problem 2 General: Chief complaint: Eye Problems Stated complaint: double vision Time Seen by Provider: 11/09/24 16:33 History of Present Illness: This patient is an 84-year-old white male who presents to the emergency department stating that he has had double vision since 11 AM yesterday. He had a mild headache yesterday but it is gone now. The headache was over the right eye. He was seen at the [facility] yesterday. He was scheduled for a head CT Tuesday morning at 7 AM. Patient has a history of hypertension and hypercholesterolemia. Related Data Home Medications ?Medication ?Instructions ?Recorded ?Confirmed finasteride 5 mg tablet 5 mg PO DAILY 03/11/2208/27 Previous Rx's ?Medication ?Instructions ?Recorded simvastatin 40 mg tablet 40 mg PO DAILY for cholester ol #90 06/17/22 tabs pantoprazole 40 mg tablet,delayed See Rx Instructions .Route 01/03/23 release .COMPLEX #90 tabs clopidogrel 75 mg tablet 75 mg PO DAILY #90 tabs 12/21 11/12 lisinopril 40 mg tablet 40 mg PO DAILY 30 days #90 t abs 01/31/23 amlodipine 10 mg tablet 10 mg PO DAILY #90 tabs 10/0 12/13 Allergies Allergy/AdvReac Type Severity Reaction Status Date / Time Sulfa (Sulfonamide Allergy Intermediate headache Verified 08/27/24 13:03 Antibiotics) metoprolol Allergy ADR-Fatigue Verified 10/25/24 15:51 d Review of Systems 2 General: Reports: 10 or more systems reviewed and unremarkable except in HPI and below Eyes: Reports: change in vision PFSH ED 2 PFSH: Medical History Dyslipidemia (high LDL; low HDL) Benign essential HTN Atherosclerotic heart disease of [place] coronary artery without angina pectoris Elevated PSA Hypertension BPH w urinary obs/LUTS Surgical History Status post transurethral resection of prostate H/O heart artery stent H/O neck surgery Family History Father , at 96 Heart disease Bleeding disorder Hypertension Mother , at age 94 Stroke Social History (Reviewed 08/27/24 @ 13:04 by ANNAMARIA Sosa Smoking and tobacco/nicotine status: former use of tobacco/nicotine Alcohol intake: never Marital status: Current occupational status: retired Physical Exam 2 Const: COMMON NORMALS: no acute distress, patient oriented x3 and no limitations GENERAL APPEARANCE: cooperative and comfortable HENMT: COMMON NORMALS: normocephalic, atraumatic, Normal nasal mucous membranes and turbinates present, moist oral mucous membranes and oropharynx normal HEAD & SCALP: normal to inspection, normocephalic and atraumatic F MARK & SINUS: normal facial exam NOSE: Normal nasal mucous membranes and turbinates present Eye: COMMON NORMALS: Equal, round and reactive pupils present, EOMs intact bilaterally and conjunctivae normal GENERAL EYE: appearance normal, both eyes and all related structures CONJUNCTIVA: Yes conjunctivae normal PUPIL: Yes Equal, round and reactive pupils present Neck/C-Spine: COMMON NORMALS: supple and no JVD Chest: COMMONS NORMALS: normal inspection of the chest Resp: COMMON NORMALS: normal respiratory effort and clear to auscultation bilaterally AUSCULTATION: clear to auscultation bilaterally Cardio: COMMON NORMALS: no JVD, regular rate, regular rhythm, No gallops present (Cardio), No murmurs present (Cardio) and No rub (Cardio) RATE: r egular rate RHYTHM: regular rhythm GI: COMMON NORMALS: Normal to inspection, nondistended, normoactive bowel sounds present, Soft to palpation and non-tender AUSCULTATION: Yes normoactive bowel sounds PALPATION: Yes Soft to palpation : COMMON NORMALS: Yes no CVA tenderness BLADDER/KIDNEY EXAM: Yes no CVA tenderness Back/Pelvis: COMMON NORMALS: no CVA tenderness and thoracic and lumbar spine normal to inspection Extremity: COMMON NORMALS: normal to inspection Neuro: COMMON NORMALS: patient oriented x3 and CN's II-XII intact bilaterally Psych: COMMON NORMALS: mental status grossly normal, Normal thought process present and cooperative THOUGHT PROCESS: Normal thought process present Skin: COMMON NORMALS: no rashes or lesions noted, turgor normal and no jaundice GENERAL SKIN EXAM: no rashes or lesions noted and turgor normal Course 2 Vital Signs: Vital signs: Vital Signs Temperature 97.7 F 11/09/24 14:40 Pulse Rate 53 L 11/09/24 19:23 Respiratory Rate 16 11/09/24 14:40 Blood Pressure 155/70 06/20/25 19:23 Pulse Oximetry 97 11/09/24 19:23 Oxygen Delivery Me thod Room Air 11/09/24 18:00 MDM - Eye Problem Medical Decision Making CBC and BMP were normal. Head CT with IV contrast was read by the radiologist as normal. I did discuss the case with Gadiel Cates with the [facility]. He will discuss the case with the watermelon harvesting supervisor on Tuesday and will likely schedule brain MRI. They will contact the patient. Patient was discharged in stable condition. Lab Data 11/09/24 17:03 11/09/24 17:[address] 11/09/24 16:41 IMPRESSION: No acute intracranial findings. No abnormal enhancement. Laboratory Results WBC 7.18 10^3/uL (3.29-11.43) 11/09/24 17:03 RBC 5.46 10^6/uL (3.85-5.65) 11/09/24 17:03 Hgb 16.40 g/dL (11.27-16.99) 11/09/24 17:03 Hct 47.9 % (37-53) 11/09/24 17:03 MCV 87.7 fl (82-101) 11/09/24 17:03 MCH 30.0 pg (27-33) 11/09/24 17:03 MCHC 34.2 g/dL (30-55) 11/09/24 17:03 RDW 13.4 % (12.1-15.1) 11/09/24 17:03 Plt Count 248 10^3/cmm (157-399) 11/09/24 17:03 MPV 9.5 fL (7.4-10.4) 11/09/24 17:03 Neut % (Auto) 50.3 % 11/09/24 17:03 Lymph % (Auto) 37.0 % 11/09/24 17:03 [place] % (Auto) 8.5 % 11/09/24 17:03 Eos % (Auto) 2.5 % 11/09/24 17:03 Baso % (Auto) 1.4 % 11/09/24 17:03 Neut # (Auto) 3.61 10^3/uL (1.8-7.7) 11/09/24 17:03 Lymph # (Auto) 2.7 10^3/uL (0.8-4.8) 11/09/24 17:03 [place] # (Auto) 0.6 10^3/uL (0.2-0.9) 11/09/24 17:03 Eos # (Auto) 0.2 10^3/uL (0.0-0.8) 11/09/24 17:03 Baso # (Auto) 0.1 10^3/uL (0.0-0.1) 11/09/24 17:03 Nucleated RBC % (auto) 0 % 11/09/24 17:03 Nucleated RBCs # 0.0 /100WBC 11/09/24 17:03 Sodium 145 mmol/L (136-145) 11/09/24 17:03 Potassium 4.0 mmol/L (3.5-5.1) 11/09/24 17:03 Chloride 107 mmol/L (98-107) 11/09/24 17:03 Carbon Dioxide 25 mmol/L (22-29) 11/09/24 17:03 Anion Gap 17.0 (5-19) 11/09/24 17:03 BUN 16 mg/dL (8-23) 11/09/24 17:03 Creatinine 1.1 mg/dL (0.7-1.2) 11/09/24 17:03 GFR Calculation Not Reportable 11/09/24 17:03 Glucose 97 mg/dL (65-115) 11/09/24 17:03 Calculated Osmolality 301 mOsm/kg (285-295) H 11/09/24 17:03 Calcium 9.1 mg/dL (8.5-10.5) 11/09/24 17:03 All radiology interpretation(s) finalized by discharge Discharge Plan Discharge Patient Disposition: Home Clinical Impression: Diplopia Condition: Stable Prescriptions: No Action simvastatin 40 mg tablet 40 mg PO DAILY Qty: 90 3RF amlodipine 10 mg tablet 10 mg PO DAILY Qty: 90 1RF pantoprazole 40 mg tablet,delayed release (DR/EC) See Rx Instructions .ROUTE .COMPLEX Qty: 90 3RF Dose Instruction: TAKE ONE TABLET BY MOUTH EVERY DAY FOR STOMACH Rx Instructions: TAKE ONE TABLET BY MOUTH EVERY DAY FOR STOMACH clopidogrel 75 mg tablet 75 mg PO DAILY Qty: 90 3RF lisinopril 40 mg tablet 40 mg PO DAILY 30 Days Qty: 90 3RF finasteride 5 mg tablet 5 mg PO DAILY Discharge Orders: Discharge ED (Routine); Ordered 11/09/24 Ordered By: Leonardo Reese Referrals: Amita Rosas MD [Primary Care Provider, Family Practice] Patient Instructions: Diplopia (ED) Activity Restrictions/Additional Instructions: Dr. Landaverde's office will contact you on Tuesday for further workup. Print Language: Pashto Coding Level of Care Code ED Barrel Handler for Karen Rodriguez
== END 2024-11-09 19:24 | disposition home or self-care (01) ==
PROVIDERS: Emergency Provider Emergency Medicine; PCP Family Medicine
DX: H53.2 Diplopia (principal); Z79.02 Long term (current) use of antithrombotics/antiplatelets; Z87.891 Personal history of nicotine dependence; E78.5 Hyperlipidemia, unspecified; I25.10 Atherosclerotic heart disease of native coronary artery without angina pectoris; I10 Essential (primary) hypertension
CPT/HCPCS: 36415; 70470; 80048; 85025; 99285

== ENCOUNTER → 2024-12-06 13:47 | Outpatient (BNVA) | payer MEDICARE, OTHER, SELFPAY | PROVIDERS: PCP Electrodiagnostic Medicine; Visit Provider Internal Medicine Cardiovascular Disease | DX: I87.2 Venous insufficiency (chronic) (peripheral) (principal); I25.10 Atherosclerotic heart disease of native coronary artery without angina pectoris; I10 Essential (primary) hypertension; Z87.891 Personal history of nicotine dependence | CPT/HCPCS: 99214 ==